=== PATIENT | female | born 1975 | race Caucasian/White ===

== ENCOUNTER 2017-01-18 08:42 | Emergency (ER) | payer OTHER ==
[~2017-01-18] VITALS: Ht 167.6 cm; Wt 113.4 kg
--- OUTSIDE RECORDS SUMMARY | 2017-01-18 09:12 | External Medical Summary Rpt ---
Author Author [employer] Organization [employer] Address Unknown Phone Unavailable Purpose Continuity of Care Document - through 2016
--- OUTSIDE RECORDS SUMMARY | 2017-01-18 09:12 | External Medical Summary Rpt ---
Demographics Preferred Language [place] Island[place] Marital Status Unknown Church Affiliation Unknown Race Unknown Ethnic Group Unknown Author Author [facility] Address Unknown Phone Immunization No patient found.
--- OUTSIDE RECORDS SUMMARY | 2017-01-18 09:12 | External Medical Summary Rpt ---
Demographics Home Phone Preferred Language Macedonian Marital Status Unknown Restoration Affiliation Unknown Race Unknown Ethnic Group Unknown Author Author MOISES Address Unknown Phone [email or web address] Purpose Continuity of Care Document - through 2016 Problems Code Diagnosis DOS Provider Status E66.01 Morbid (severe) obesity due to excess calories K95.09 Other complicatio ns of gastric band procedure R10.12 Left upper quadrant pain R10.2 Pelvic and perineal pain Z46.51 Encounter for fitting and adjustment of gastric lap band Z68.41 Body mass index (BMI) 40.0-44.9, adult Z98.84 Bariatric surgery status
--- OUTSIDE RECORDS SUMMARY | 2017-01-18 09:12 | External Medical Summary Rpt ---
Demographics Home Phone Preferred Language Polish Marital Status Unknown Episcopal Affiliation Unknown Race Unknown Ethnic Group Unknown Author Author MOIS[facility] Address Unknown Phone [email or web address] Purpose Continuity of Care Document - through [...]
--- OUTSIDE RECORDS SUMMARY | 2017-01-18 09:12 | External Medical Summary Rpt ---
Author Author MOISES Amaya, MOISES Amaya Organization [employer] Address Unknown Phone Unavailable
--- OUTSIDE RECORDS SUMMARY | 2017-01-18 09:12 | External Medical Summary Rpt ---
Demographics Preferred Language Mosotho Marital Status Unknown Mu-Ism Affiliation Unknown Race Unknown Ethnic Group Unknown Author Author MOIS[facility] Address Unknown Phone Immunization No patient found.
--- NOTE | 2017-01-18 09:28 | Emergency Room Report ---
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 N Clinical Suspician of Infection? N Mental Status: 1 - Regular (Normal Baseline) Sepsis Risk:Low Sepsis Risk Have you (or family members/close friends) recently traveled outside the [place]? N If Yes, where/when: Have you had exposure to infectious disease within the past month? N TB? Other? Specify: Source patient, RN notes reviewed, RN/MD Exam Limitations no limitations Comment 41-year-old female presenting to the emergency room with work-related injury, after tripping and falling at work, at [facility], on Tuesday, 01/14, around 7:30 PM. Patient here with pain to LEFT ankle/LEFT foot, and bluish discoloration of her LEFT lateral foot. ALLERGIES Coded Allergies: Penicillins (Mild, 01/18/17) cephalexin (From KEFLEX) (Mild, 01/18/17) morphine (Mild, 01/18/17) Home Medications Reported Medications No Known Home Medications History Medical History General CAD? No Angina: No CT: No Hypertension? No Hyperlipidemia? No CHF? No DVT? No PE? No COPD? No Asthma? No Anemia? No GERD? No Gastric ulcers? No GI Bleed? No Hernia? No Thyroid Problems? No Hypothyroidism? No CVA? No Seizures? No Diabetes? No Renal Insuffiency? No End Stage Renal Disease? No UTI? No Stones? No BPH? No GB Disease: No Nephritic Syndrome? No Asplenia? No Hepatitis? No Sickle Cell Disease? No Arthritis? No Migraines? No Cataracts? No Glaucoma? No MRSA? No HIV? No TB? No Anxiety? No Depression? No Cancer? No More? 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 No: respiratory distress. Lung Sounds bilateral: normal breath sounds, lungs clear. 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 No Comment Juan wrap, elevate, ice packs, Motrin/Tylenol, follow-up with PCP if not better Results/Orders Orders Procedure Date/time Status GEN NSG/PT REQ (NOT FOR MEDS!) 01/18 0931 Active STABILIZE JOINT 01/18 0930 Active FOOT-LT-3 VIEWS 01/18 0853 Active ANKLE-LT-3 VIEWS 01/18 0853 Active XRAY/CT/US XRAY/CT/US XRAY LEFT ankle negative, LEFT foot negative Departure Departure Time of Disposition 0927 Disposition DC Home or Self Care(routine) Clinical Impression Primary Impression: Left ankle sprain Qualifiers: Encounter type: initial encounter Involved ligament of ankle: unspecified ligament Qualified Code: S93.402A - Sprain of unspecified ligament of left ankle, initial encounter Secondary Impressions: Sprain of left foot Qualifiers: Encounter type: initial encounter Qualified Code: S93.602A - Unspecified sprain of left foot, initial encounter Condition STABLE Referrals ARLET READ (Family) Patient Instructions DI for Ankle Sprain, DI for Foot Sprain Additional Instructions Please wrap affected area with an Juan wrap, keep limb elevated, apply an ice pack locally, alternating Motrin and Tylenol for pain control, follow up with PCP if not better in 5-7 days. Discharge Counseling Counseled pt/family regarding diagnosis, test results, medications/RX, home care, follow up needs Comment Please wrap affected area with an Juan wrap, keep limb elevated, apply an ice pack locally, alternating Motrin and Tylenol for pain control, follow up with PCP if not better in 5-7 days. Prescriptions Current Visit Scripts No Known Home Medications ED Critical Care Critical Care No at 0936
--- NOTE | 2017-01-18 09:28 | Emergency Room Report ---
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 N Clinical Suspician of Infection? N Mental Status: 1 - Regular (Normal Baseline) Sepsis Risk:Low Sepsis Risk Have you (or family members/close friends) recently traveled outside the [place]? N If Yes, where/when: Have you had exposure to infectious disease within the past month? N TB? Other? Specify: Source patient, RN notes reviewed, RN/MD Exam Limitations no limitations Comment 41-year-old female presenting to the emergency room with work-related injury, after tripping and falling at work, at [facility], on Tuesday, 01/14, around 7:30 PM. Patient here with pain to LEFT ankle/LEFT foot, and bluish discoloration of her LEFT lateral foot. ALLERGIES Coded Allergies: Penicillins (Mild, 01/18/17) cephalexin (From KEFLEX) (Mild, 01/18/17) morphine (Mild, 01/18/17) Home Medications Reported Medications No Known Home Medications History Medical History General CAD? No Angina: No CA: No Hypertension? No Hyperlipidemia? No CHF? No DVT? No PE? No COPD? No Asthma? No Anemia? No GERD? No Gastric ulcers? No GI Bleed? No Hernia? No Thyroid Problems? No Hypothyroidism? No CVA? No Seizures? No Diabetes? No Renal Insuffiency? No End Stage Renal Disease? No UTI? No Stones? No BPH? No GB Disease: No Nephritic Syndrome? No Asplenia? No Hepatitis? No Sickle Cell Disease? No Arthritis? No Migraines? No Cataracts? No Glaucoma? No MRSA? No HIV? No TB? No Anxiety? No Depression? No Cancer? No More? 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 No: respiratory distress. Lung Sounds bilateral: normal breath sounds, lungs clear. 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 No Comment Juan wrap, elevate, ice packs, Motrin/Tylenol, follow-up with PCP if not better Results/Orders Orders Procedure Date/time Status GEN NSG/PT REQ (NOT FOR MEDS!) 01/18 0931 Active STABILIZE JOINT 01/18 0930 Active FOOT-LT-3 VIEWS 01/18 0853 Active ANKLE-LT-3 VIEWS 01/18 0853 Active XRAY/CT/US XRAY/CT/US XRAY LEFT ankle negative, LEFT foot negative Departure Departure Time of Disposition 0927 Disposition DC Home or Self Care(routine) Clinical Impression Primary Impression: Left ankle sprain Qualifiers: Encounter type: initial encounter Involved ligament of ankle: unspecified ligament Qualified Code: S93.402A - Sprain of unspecified ligament of left ankle, initial encounter Secondary Impressions: Sprain of left foot Qualifiers: Encounter type: initial encounter Qualified Code: S93.602A - Unspecified sprain of left foot, initial encounter Condition STABLE Referrals ARLET READ (Family) Patient Instructions DI for Ankle Sprain, DI for Foot Sprain Additional Instructions Please wrap affected area with an Juan wrap, keep limb elevated, apply an ice pack locally, alternating Motrin and Tylenol for pain control, follow up with PCP if not better in 5-7 days. Discharge Counseling Counseled pt/family regarding diagnosis, test results, medications/RX, home care, follow up needs Comment Please wrap affected area with an Juan wrap, keep limb elevated, apply an ice pack locally, alternating Motrin and Tylenol for pain control, follow up with PCP if not better in 5-7 days. Prescriptions Current Visit Scripts No Known Home Medications ED Critical Care Critical Care No at 0936
--- NOTE | 2017-01-18 09:45 | RADIOLOGY REPORT PS360 ---
FOOT-LT-3 VIEWS HISTORY: Posttraumatic pain pain, s/p fall ORDERING PHYSICIAN: Reese Swan MD PATIENT AGE: 41 years COMPARISON: None FINDINGS: There is minimal hallux valgus. Small calcaneal spur. No fracture or dislocation. No lytic or blastic change. There is normal mineralization.. The joint spaces are well-preserved. No significant degenerative/arthritic changes. No erosive changes evident. IMPRESSION: No acute fracture
--- NOTE | 2017-01-18 09:46 | RADIOLOGY REPORT PS360 ---
ANKLE-LT-3 VIEWS HISTORY: Posttraumatic pain pain, s/p fall ORDERING PHYSICIAN: Reese Swan MD PATIENT AGE: 41 years COMPARISON: None FINDINGS: No displaced fracture or dislocation. No lytic or blastic change. There is normal mineralization.. The joint spaces are well-preserved. No significant degenerative/arthritic changes. No erosive changes evident. There is a well-circumscribed calcification along the medial aspect of the medial malleolus tip probably related to an old avulsion injury. Please correlate as to patient's area of pain. IMPRESSION: 1. Probable old avulsion injury at the tip of the medial malleolus. 2. Otherwise negative
[2017-01-18 09:52] VITALS: BP 112/83
== END 2017-01-18 09:52 | disposition home or self-care (01) ==
LOC: ER 08:42
DX: S93.402A Sprain of unspecified ligament of left ankle, initial encounter (principal); S93.602A Unspecified sprain of left foot, initial encounter; W01.10XA Fall on same level from slipping, tripping and stumbling with subsequent striking against unspecified object, initial encounter; Y92.69 Other specified industrial and construction area as the place of occurrence of the external cause; Y99.0 Civilian activity done for income or pay